=== PATIENT | female | born 2000 | race Caucasian/White ===

== ENCOUNTER 2022-08-15 09:21 | Outpatient (CLI) | payer OTHER, SELFPAY ==
--- NOTE | 2022-08-15 10:15 | CRLHL7_ITS ---
For Patients: As a result of the Century Cures Act, medical imaging exams and procedure reports are released immediately into your electronic medical record. You may view this report before your referring provider. If you have questions, please contact your health care provider. LEFT BREAST ULTRASOUND INDICATION: 21-year-old female. Palpable lump upper inner quadrant LEFT breast. TECHNIQUE: Directed LEFT breast ultrasound with this radiologist present. The LEFT breast is carefully scanned from the 9 o`clock to 12 o`clock position. [employer] images were obtained. FINDINGS: At the 10 o`clock position 5 cm from the nipple there is a solid 0.7 x 1.0 x 1.0 cm nodule superficially located likely fibroadenoma. At the 11 o`clock position 3 cm from the nipple is a 0.9 x 0.5 x 0.5 cm solid nodule possibly a fibroadenoma. At the 12 o`clock position 4 cm from the nipple there is a solid 1.6 x 0.7 x 1.0 cm lobulated nodule also likely a fibroadenoma. Ultrasound-guided biopsy of all three nodules with clip placement was discussed with the patient. Short interval follow-up ultrasounds over time were also discussed with the patient. Additional imaging such as with breast MRI may or may not be useful. 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 Biopsy or careful short interval follow-up recommended. BI-RADS Category 4: Suspicious A lay language report of this examination will be provided to the patient. Dictated by: Jose Go MD @08/15/2022 11:04:26 AM jj/Dictated by: Jose Go MD @ 08/15/2022 11:04:00 AM (Electronically Signed)
== END 2022-08-15 09:22 | disposition home or self-care (01) ==
LOC: US 09:22
PROVIDERS: Visit Provider Nurse Practitioner Family
DX: N63.20 Unspecified lump in the left breast, unspecified quadrant (principal); N63.22 Unspecified lump in the left breast, upper inner quadrant
CPT/HCPCS: 76642